=== PATIENT | male | born 1985 | race Caucasian/White ===

== ENCOUNTER 2021-03-31 18:53 | Emergency (ER) | payer OTHER ==
[~2021-03-31] VITALS: Ht 182.9 cm; Wt 68.0 kg
[~2021-03-31 18:53] MED LIST: ACYCLOVIR 400400 M1 PO; ATIVAN1 MG PO; CARISOPRODOL 3350 MG; CELEXA40 MG; CLONAZEPAM; DIAZEPAM 5 MG5 MG PO; FLEXERIL; NORCO 5-325 TA1 EACH PO; PERCOCET 5-3251 EACH; PREDNISONE50 MG PO; PROZAC40 MG PO; VISTARIL 25 MG25 M1 PO
[2021-03-31] MEDS ORDERED: NOVOLIN 70100 UNIT/5 SUBQ (19:15)
[2021-03-31 20:38] LABS: URINE BILIRUBIN NEGATIVE (Negative); URINE BLOOD NEGATIVE (Negative); URINE CLARITY CLEAR; URINE COLOR YELLOW; URINE GLUCOSE-RANDOM 3+ (Negative); URINE KETONES TRACE (Negative); URINE LEUKOCYTES-REFLEX NEGATIVE (Negative); URINE NITRITE-REFLEX NEGATIVE (Negative); URINE PROTEIN NEGATIVE (Negative); URINE UROBILINOGEN 0.2 E.U./dl (0.2-1.0)
[2021-03-31 20:45] LABS: AMP/METHAMP Negative (Negative); BARBITURATES Negative (Negative); BENZODIAZEPINES Negative (Negative); COCAINE Negative (Negative); METHADONE Negative (Negative); OPIATES Negative (Negative); PCP Negative (Negative); THC Negative (Negative)
[2021-03-31 20:49] LABS: ABSOLUTE BASOPHILS 0.1 thou/uL (0.0-0.2); ABSOLUTE EOSINOPHILS 0.1 thou/uL (0.0-0.7); ABSOLUTE LYMPHOCYTES 1.7 thou/uL (0.8-5.3); ABSOLUTE MONOCYTES 0.5 thou/uL (0.0-1.2); ABSOLUTE NEUTROPHILS 4.4 thou/uL (1.6-8.1); BASOPHILS 1.1 %; EOSINOPHILS 1.1 %; HEMATOCRIT 44.2 % (42.0-52.0); HEMOGLOBIN 15.1 gm/dL (14.0-18.0); LYMPHOCYTES 25.6 %; MCH 31.4 pg (26.0-34.0); MCHC 34.3 g/dL (28.0-37.0); MCV 91.6 fL (80.0-100.0); MONOCYTES 7.2 %; MPV 9.4 fl. (7.2-11.1); NUCLEATED RBCS 0 /100WBC; PLATELET COUNT* 143 thou/uL (150-400); RBC 4.83 mil/uL (4.50-6.00); RDW-CV 12.7 % (10.5-14.5); WBC 6.8 thou/uL (4.0-11.0)
[2021-03-31 21:05] LABS: CALCIUM 8.8 mg/dL (8.5-10.1); CREATININE 1.4 mg/dL (0.6-1.3); POTASSIUM 4.5 mmol/L (3.5-5.1)
[2021-03-31 21:07] LABS: ALBUMIN 3.7 g/dL (3.4-5.0); MAGNESIUM 2.2 mg/dL (1.8-2.4); TOTAL BILIRUBIN 0.2 mg/dL (<0.1-1.0)
[2021-03-31 21:11] LABS: BE 1.5 mmol/L (-2 to +3); PO2 VENOUS 48.1 mmHg (35.0-45.0)
[2021-04-01] MEDS ORDERED: HUMALOG100 UNIT/1 SUBQ (00:03)
[2021-04-01 00:19] VITALS: BP 102/56
== END 2021-04-01 00:19 | disposition home or self-care (01) ==
LOC: M.ERS 18:53
PROVIDERS: Personal Emergency Response Attendant
DX: E11.65 Type 2 diabetes mellitus with hyperglycemia (principal); Z79.4 Long term (current) use of insulin; Z79.899 Other long term (current) drug therapy

== ENCOUNTER 2021-04-03 17:01 | Inpatient (IN) | payer OTHER ==
[~2021-04-03] VITALS: Ht 182.9 cm; Wt 65.8 kg
[~2021-04-03 17:01] MED LIST changes: +HUMALOG100 UNIT/1 SUBQ; +NOVOLIN 70100 UNIT/5 SUBQ
[2021-04-03 17:16] VITALS: BP 136/90
[2021-04-03 17:59] LABS: ABSOLUTE BASOPHILS 0.1 thou/uL (0.0-0.2); ABSOLUTE EOSINOPHILS 0.1 thou/uL (0.0-0.7); ABSOLUTE LYMPHOCYTES 1.9 thou/uL (0.8-5.3); ABSOLUTE MONOCYTES 0.4 thou/uL (0.0-1.2); ABSOLUTE NEUTROPHILS 4.8 thou/uL (1.6-8.1); BASOPHILS 0.7 %; EOSINOPHILS 1.1 %; HEMATOCRIT 51.6 % (42.0-52.0); LYMPHOCYTES 26.4 %; MCH 31.4 pg (26.0-34.0); MCHC 33.6 g/dL (28.0-37.0); MCV 93.3 fL (80.0-100.0); MONOCYTES 4.9 %; NUCLEATED RBCS 0 /100WBC; PLATELET COUNT* 198 thou/uL (150-400); POLYS 66.9 %; RBC 5.53 mil/uL (4.50-6.00); RDW-CV 13.4 % (10.5-14.5); WBC 7.2 thou/uL (4.0-11.0)
[2021-04-03 18:00] LABS: HEMOGLOBIN 17.4 gm/dL (14.0-18.0)
[2021-04-03 18:02] LABS: URINE BILIRUBIN NEGATIVE (Negative); URINE BLOOD NEGATIVE (Negative); URINE CLARITY CLEAR; URINE COLOR YELLOW; URINE GLUCOSE-RANDOM 3+ (Negative); URINE LEUKOCYTES-REFLEX NEGATIVE (Negative); URINE NITRITE-REFLEX NEGATIVE (Negative); URINE PROTEIN NEGATIVE (Negative); URINE SPECIFIC GRAVITY >= 1.030 (1.005-1.030); URINE UROBILINOGEN 0.2 E.U./dl (0.2-1.0)
[2021-04-03 18:09] LABS: CALCIUM 9.1 mg/dL (8.5-10.1); CREATININE 1.2 mg/dL (0.6-1.3)
[2021-04-03 18:10] LABS: URINE KETONES 3+ (Negative)
[2021-04-03 18:14] LABS: ALBUMIN 4.5 g/dL (3.4-5.0); TOTAL BILIRUBIN 0.5 mg/dL (<0.1-1.0); TOTAL PROTEIN 8.5 g/dL (6.4-8.2)
[2021-04-03 21:51] VITALS: BP 112/65
[2021-04-03 21:59] VITALS: BP 120/62
[2021-04-03 22:00] VITALS: BP 110/63
[2021-04-03 22:52] LABS: AMP/METHAMP Negative (Negative); BARBITURATES Negative (Negative); BENZODIAZEPINES Negative (Negative); COCAINE Negative (Negative); METHADONE Negative (Negative); OPIATES Negative (Negative); PCP Negative (Negative); THC Negative (Negative)
[2021-04-03 23:00] VITALS: BP 94/45
[2021-04-03 23:59] LABS: CALCIUM 7.6 mg/dL (8.5-10.1); CREATININE 0.9 mg/dL (0.6-1.3); MAGNESIUM 1.8 mg/dL (1.8-2.4); PHOSPHORUS* 2.9 mg/dL (2.5-4.9)
[2021-04-04] VITALS (15 sets, daily range): BP systolic 88–112; BP diastolic 44–76
[2021-04-04 00:03] LABS: POTASSIUM 3.9 mmol/L (3.5-5.1)
[2021-04-04 05:54] LABS: MCH 31.2 pg (26.0-34.0); MCHC 34.8 g/dL (28.0-37.0); MCV 89.7 fL (80.0-100.0); MPV 8.3 fl. (7.2-11.1); RBC 4.24 mil/uL (4.50-6.00)
[2021-04-04 05:56] LABS: HEMOGLOBIN 13.2 gm/dL (14.0-18.0)
[2021-04-04 06:48] LABS: ALBUMIN 2.8 g/dL (3.4-5.0); ALKALINE PHOSPHATASE 151 U/L (46-116); ANION GAP 8 mmol/L (7-16); BUN 16 mg/dL (7-18); CALCIUM 7.4 mg/dL (8.5-10.1); CHLORIDE 108 mmol/L (98-107); CO2 21 mmol/L (21-32); CREATININE 0.8 mg/dL (0.6-1.3); GLUCOSE 98 mg/dL (70-99); MAGNESIUM 1.9 mg/dL (1.8-2.4); POTASSIUM 3.8 mmol/L (3.5-5.1); SGOT 94 U/L (15-37); SGPT 117 U/L (30-65); SODIUM 137 mmol/L (136-145); TOTAL BILIRUBIN 0.1 mg/dL (<0.1-1.0); TOTAL PROTEIN 5.2 g/dL (6.4-8.2)
--- NOTE | 2021-04-04 14:42 | EKG ---
[place] [address] ELECTROCARDIOGRAM REPORT Name: GUERO HAND Room: [address] ADM IN M.R.#: [id number] Admission: 04/03/21 Attend Phys: Franchesca Real, Discharge: Date of : 83 Date of Service: 04/03/21 1734 Report #: [id number] THIS REPORT FOR: //name// [facility] ED Test Date: 2021-04-03 Test Time: 17:34:21 Pat Name: GUERO HAND Department: Room: [address] Gender: M Clinical Supervisor: CARLA : 1985 Requested By: Tyrese Kothari Order Number: [id number] Zee MD: Fransico Vogel Measurements Intervals [place] Rate: 69 P: 48 FL: 135 QRS: 51 QRSD: 86 T: 59 QT: 411 QTc: 441 Interpretive Statements Incomplete analysis due to missing data in precordial lead(s) Sinus rhythm Left atrial enlargement Missing lead(s): V5 Compared to ECG 10/31/2011 17:55:17 Atrial abnormality now present Electronically Signed On 04-04-2021 14:42:37 CDT by Fransico Vogel [email or web address] <ELECTRONICALLY SIGNED> By: Fransico Vogel MD, FAC 04/04/21 1442 1734 1734 Fransico Vogel MD, [facility] /EPI
--- NOTE | 2021-04-04 14:43 | EKG ---
[place] [address] ELECTROCARDIOGRAM REPORT Name: GUERO HAND Room: [address] ADM IN M.R.#: [id number] Admission: 04/03/21 Attend Phys: Franchesca Real, Discharge: Date of : 83 Date of Service: 04/03/21 1735 Report #: [id number] THIS REPORT FOR: //name// [facility] ED Test Date: 2021-04-03 Test Time: 17:35:32 Pat Name: GUERO HAND Department: Room: [address] Gender: M Remote Encoding Operations Supervisor: CARLA : 1985 Requested By: Tyrese Kothari Order Number: [id number] MD: Fransico Vogel Measurements Intervals [place] Rate: 72 P: 70 CT: 138 QRS: 54 QRSD: 85 T: 59 QT: 404 QTc: 443 Interpretive Statements Sinus rhythm Left atrial enlargement Baseline wander in lead(s) V5 Compared to ECG 04/03/2021 17:34:21 No significant changes Electronically Signed On 04-04-2021 14:42:52 CDT by Fransico Vogel [email or web address] <ELECTRONICALLY SIGNED> By: Fransico Vogel MD, [facility] 04/04/21 1442 1735 1735 Fransico Vogel MD, [facility] /EPI
[2021-04-05 04:17] LABS: CALCIUM 7.7 mg/dL (8.5-10.1); CREATININE 0.5 mg/dL (0.6-1.3); POTASSIUM 3.8 mmol/L (3.5-5.1)
[2021-04-05 04:31] LABS: HEMATOCRIT 40.5 % (42.0-52.0); HEMOGLOBIN 14.2 gm/dL (14.0-18.0); MCH 30.9 pg (26.0-34.0); MCV 88.4 fL (80.0-100.0); MPV 8.6 fl. (7.2-11.1); RBC 4.58 mil/uL (4.50-6.00); RDW-CV 13.1 % (10.5-14.5); WBC 6.4 thou/uL (4.0-11.0)
[2021-04-05] MEDS ORDERED: NOVOLIN 70100 UNIT/5 SUBQ (08:49)
[2021-04-05 08:55] VITALS: BP 94/48
[2021-04-05 11:28] VITALS: BP 112/76
[2021-04-05 14:15] VITALS: BP 112/76
[2021-04-05 14:36] VITALS: BP 112/76
== END 2021-04-05 15:00 | disposition home or self-care (01) | DRG 639 ==
LOC: M.ERS 17:01 → M.TBA-ER 20:00 → M.ICU 21:28 → M.ORTHSURG 04-04 16:38
PROVIDERS: Family Medicine; Physician Assistant; ADMIT Internal Medicine; ATTEND Internal Medicine
DX: E11.10 Type 2 diabetes mellitus with ketoacidosis without coma (principal); F32.9 Major depressive disorder, single episode, unspecified; F41.9 Anxiety disorder, unspecified; K59.00 Constipation, unspecified; E87.5 Hyperkalemia; K83.8 Other specified diseases of biliary tract; E87.6 Hypokalemia; Z91.14 Patient's other noncompliance with medication regimen; K81.9 Cholecystitis, unspecified; Z20.822 Contact with and (suspected) exposure to COVID-19; Z79.899 Other long term (current) drug therapy